=== PATIENT | female | born 1985 | race Caucasian/White ===

== ENCOUNTER 2021-07-01 19:41 | Emergency (ER) | payer BC, SELFPAY ==
[2021-07-01 20:00] VITALS: BP 145/72; PULSE 75; RESP 20; TEMP 36.9; O2SAT 99
--- NOTE | 2021-07-01 20:38 | ED.URI ---
HPI - URI/Sore Throat General Chief Complaint: Upper Respiratory Infection Stated Complaint: Covid Symptoms Time Seen by Provider: 07/01/21 20:26 Source: patient and RN notes reviewed Mode of arrival: ambulatory Limitations: no limitations History of Present Illness HPI Narrative: Patient presents today complaining of a 2-day history of cough, nasal congestion, sore throat and ear pain. She called her doctor yesterday and was given a Z-Ethan over the phone for her symptoms for presumed sinus infection. Patient had a fever of 102 yesterday. Today she was at a public pool for her son's birthday democrat and could not smell the chlorine or taste the pizza became alarmed. Denies shortness of breath or chest pain. She has had her COVID-19 vaccine. Denies history of asthma or COPD. She has been taking Flonase and NyQuil with some relief. MD elicited complaint: fever, cough and nasal congestion Related Data Home Medications Medication Instructions Recorded Confirmed PNV cmb#95-ferrous fumarate-FA 28 tablet PO DAILY 07/01/21 07/01/21 [] azithromycin 07/01/21 metformin 1,000 mg PO BID 07/01/21 07/01/21 Allergies Allergy/AdvReac Type Severity Reaction Status Date / Time No Known Allergies Allergy Unverified 06/28/18 17:23 Review of Systems Review of Systems: CONSTITUTIONAL: Denies body aches, chills, or sweats.+ Fever EYES: Denies visual changes, redness, or discharge. ENT: Denies rhinorrhea. + Congestion, ear pain, sore throat, loss of taste and smell CARDIOVASCULAR: Denies chest pain, palpitations, or edema. RESPIRATORY: Denies dyspnea.+ Cough GASTROINTESTINAL: Denies abdominal pain, nausea, vomiting, or diarrhea. GENITOURINARY: Denies dysuria or hematuria. SKIN: Denies rash, itching, or wounds. MUSCULOSKELETAL: Denies back pain, joint pain, or myalgia. NEUROLOGIC: Denies headache, numbness, tingling, or weakness. PSYCH: Denies depression or anxiety. [facility] Social History Social History Gender identity (if verbalized by the patient): Female Comments At time of signature, I have reviewed and agree with nursing past medical, surgical, social and family history unless otherwise noted. Please see nursing chart for further information. There is no relevant family history pertinent to the presenting complaint Exam Narrative: GENERAL: Well-appearing, well-nourished, and in no acute distress. HEAD: Normocephalic, atraumatic. EYES: EOMI. No redness or drainage. Conjunctivae normal. ENT: Mucous membranes pink and moist. Nares clear. No rhinorrhea. Left TM normal. Right TM with serous effusion. Throat normal. Uvula midline. NECK: Normal AROM. Supple. No lymphadenopathy. CHEST: No respiratory distress. Clear to auscultation. HEART: Regular rate and rhythm. No murmur appreciated. Normal peripheral pulses. EXTREMITIES: Normal range of motion. No edema. SKIN: Warm, dry, no rash. Capillary refill normal. Normal skin turgor. NEURO: No focal deficits. Alert and oriented x3. Gait steady. PSYCH: Normal affect. No signs of depression or anxiety. Course Vital Signs Vital signs: Vital Signs Temperature 98.5 F 07/01/21 20:00 Pulse Rate 75 07/01/21 20:00 Respiratory Rate 20 07/01/21 20:00 Blood Pressure 145/72 H 07/01/21 20:00 Pulse Oximetry 99 07/01/21 20:00 Temperature 98.5 F 07/01/21 20:00 Pulse Rate 75 07/01/21 20:00 Respiratory Rate 20 07/01/21 20:00 Blood Pressure 145/72 H 07/01/21 20:00 Pulse Oximetry 99 07/01/21 20:00 Reviewed. Pt has been instructed to follow up with her PCP regarding her elevated blood pressure today. MDM - URI/Sore Throat Differential Diagnosis Differential diagnosis: Likely upper respiratory infection, sinusitis, viral infection, bronchitis and other (COVID-19) Lab Data Attestation: I reviewed the patient's lab results. Lab results narrative: Rapid Covid test positive Labs: Lab Resul
== END 2021-07-01 20:48 | disposition home or self-care (01) ==
PROVIDERS: Emergency Provider Nurse Practitioner; PCP Nurse Practitioner Family
DX: U07.1 COVID-19 (principal)
CPT/HCPCS: 87426; 99203; C9803; G0463

== ENCOUNTER 2022-08-15 12:30 | Outpatient (RCR) | payer BC, SELFPAY ==
[2022-08-08 21:42] VITALS: BP 122/66; PULSE 60
[2022-08-15 13:22] VITALS: BP 109/63; PULSE 75
== END 2022-11-06 23:59 | disposition home or self-care (01) ==
LOC: ANHOBOP 12:30
PROVIDERS: Visit Provider Obstetrics & Gynecology
DX: O36.8130 Decreased fetal movements, third trimester, not applicable or unspecified (principal); Z3A.37 37 weeks gestation of pregnancy
CPT/HCPCS: 59025

== ENCOUNTER 2022-08-21 10:49 | Outpatient (CLI) | payer BC, SELFPAY ==
[2022-08-21 11:34] LABS: Hematocrit 35.4 % (37.0-47.0); Hemoglobin 12.2 g/dL (12.0-15.0); Mean Corpuscular HGB Conc 34.5 g/dl (32-36); Mean Corpuscular Hemoglobin 33.3 pg (26-34); Mean Corpuscular Volume 96.7 fl (80-100); Mean Platelet Volume 9.5 fl (7.4-10.4); Platelet Count Result 140 k/mm3 (150-375); Red Blood Count 3.66 M/mm3 (4.2-5.4); Red Cell Distribution Width 12.7 % (11.5-14.5); White Blood Count 6.5 K/mm3 (4.5-10.0)
[2022-08-21 12:44] LABS: HIV 1/2 Ab P24 Ag Result Negative (Negative)
[2022-08-21 15:25] LABS: Rapid Plasma Reagin Non-Reactive (NonReactive)
== END 2022-08-21 10:50 | disposition home or self-care (01) ==
PROVIDERS: Visit Provider Obstetrics & Gynecology
DX: Z34.93 Encounter for supervision of normal pregnancy, unspecified, third trimester (principal); Z3A.00 Weeks of gestation of pregnancy not specified
CPT/HCPCS: 36415; 85027; 86592; 86703; 86850; 86900; 86901; G0432

== ENCOUNTER 2022-08-22 05:04 | Inpatient (IN) | payer BC, SELFPAY ==
[2022-08-22] VITALS (43 sets, daily range): BP systolic 79–136; BP diastolic 43–80; PULSE 44–171; RESP 10–20; TEMP 35.7–36.8; O2SAT 97–100; BMI 37.5
[2022-08-22] MEDS: LACTATED RINGERS 1,000 ML 125 ML IV CONT ×2 (06:41→07:14)
--- NOTE | 2022-08-22 07:12 | P.HP_ITS ---
H&P: HPI History of Present Illness Date/Time: 08/22/22 07:12 Chief Complaint: R CS Narrative: Esther is a 37yo at 39.0 for repeat CS. her is complicated by AMA, BMI 43, history of gastric sleeve, IUGR 9% at one point (currently 15%), and COVID during . She had PreE last and has had a couple mildly elevated BPs and a normal 24hour urine at 37w. Review of Systems Review of Systems: All systems reviewed & are unremarkable except as noted in HPI and below PMFSH Family History Family History (Updated 08/03/22 @ 12:46 by Zulema Pérez RN) Mother Diabetes mellitus Social History Social History Smoking status: Never smoker Second hand tobacco smoke exposure: No Substance use: never Gender identity (if verbalized by the patient): Female Spiritual care concerns: No Meds Home Medications and Allergies Home Medications Medication Instructions Recorded Confirmed Type vit no.95-ferrous 28 tablet PO DAILY 07/01/21 08/22/22 History fumarate 28 mg-folic acid 800 mcg tablet () aspirin 81 mg tablet 81 mg PO DAILY 08/03/22 08/03/22 History vitamin B complex (B 1 tablet PO DAILY 08/03/22 08/03/22 History Complex-Vitamin B12 tablet) Allergies Allergy/AdvReac Type Severity Reaction Status Date / Time No Known Allergies Allergy Unverified 06/28/18 17:23 Vital Signs Vital Signs - 24 hr 08/22/22 05:18 08/22/22 06:45 Pulse Rate 71 Blood Pressure 115/70 Oxygen Delivery Room Air Exam Const: General: no acute distress Resp: Effort & Inspection: normal respiratory effort Auscultation: clear to auscultation bilaterally Cardio: Rate: regular rate Rhythm: regular rhythm GI: GI Palp: Yes Soft to palpation Extrem: General: normal to inspection Assessment and Plan Assessment and plan (1) History of delivery: Code(s): Z98.891 - History of uterine scar from previous surgery Status: Acute (2) AMA (advanced maternal age) multigravida 35+: Code(s): O09.529 - Supervision of elderly multigravida, unspecified trimester Status: Acute (3) H/O gastric sleeve: Code(s): Z90.3 - Acquired absence of stomach [part of] Status: Acute (4) BMI 40.0-44.9, adult: Code(s): Z68.41 - Body mass index [BMI] 40.0-44.9, adult Status: Acute Plan consented for R CS discussed RBA, questions answered. will proceed.
--- NOTE | 2022-08-22 07:16 | WPDHPUPDATE1 ---
History and Physical Update Update Date/Time: 08/22/22 07:16 History and Physical has been reviewed, including an updated exam of the patient. There are NO changes in the patient's condition. Risks, benefits, and alternatives have been discussed and questions answered. Patient agrees to proceed with procedure.
[2022-08-22] MEDS: ceFAZolin 2 GM/D5W 50 ML 2 GM/50 ML BAG IVPB (08:00)
--- NOTE | 2022-08-22 08:58 | PM.OBPRVD ---
OB - Delivery Note Procedure Delivery date: 08/22/22 Procedure: Procedures Operation Date: 08/22/22 07:30 <No data on this case meets the specified criteria> repeat low transverse section Events: Previous Delivery Route of delivery: Specimen: Yes (placenta) Quantitative Blood Loss (ml): 535 Anesthesia type: Spinal Disposition: Floor Complications: none Narrative: The patient was taken to the OR and received spinal anesthesia. She was placed in dorsal supine position with left lateral tilt. SCDs and brito were placed. She was prepped and draped in the normal sterile fashion. A Pfannensteil skin incision was made and carried through to the underlying layer of fascia. The fascia was incised in the midline and then extended laterally using Anderson scissors. The muscles were in the midline and the peritoneum was entered bluntly. The peritoneal incision was extended inferiorly and superiorly with care to avoid the bladder. The bladder blade was then inserted, the vesicouterine peritoneum was grasped, incised with Metzenbaum scissors, and a bladder flap created. The bladder blade was reinserted. A low transverse uterine incision was made with a scalpel and extended bluntly. AROM was performed and fluid was noted to be clear. The head was delivered, followed by the remainder of the baby. The baby's oropharynx was suctioned. After 30 seconds, the cord was clamped and cut and the was handed off. Cord blood was obtained and the placenta was then removed manually. The uterus was exteriorized. A moist lap sponge was used to curette the endometrium. The uterine incision was then closed with one layer of 0-Vicryl in a running, locking fashion. Good hemostasis was noted. The posterior cul de sac was irrigated with normal saline and cleared of all clot and debris. The uterus was returned to the abdomen. Both lateral gutters were then irrigated. The rectus muscles were inspected and found to be hemostatic. The fascia was reapproximated using 0-Vicryl in running fashion. The subcutaneous tissue was irrigated with normal saline and made hemostatic with Bovie electrocautery. The subcutaneous tissue was reapproximated with a layer of running 2-0 plain gut. The skin was then closed with absorbable danielle. Steri strips and a bandage were applied. The uterus was evacuated. The patient tolerated the procedure very well. All counts were correct. She was taken to the recovery room in good condition. [place] Baby Date of : 08/22/22 Time of : 08:09 Weeks of gestation at delivery: 39 gender: Female Weight (pounds): 6 Weight (ounces): 8 presentation: vertex Placenta delivery description: Manual Removal Cord Vessel Description: 3 Vessels and Delayed Cord Clamping score one minute: 9 score five minutes: 9
[2022-08-22] MEDS: DEXTROSE 5%/0.45% SOD CHL 1,000 ML 125 ML IV CONT (12:23)
--- NOTE | 2022-08-22 13:46 | OBPPTRN ---
1120 Patient transferred to post room #285 via stretcher. Support person present. Oriented to unit, room, information board, rooming in, admission packet and security measures. Patient verbalizes understanding.
[2022-08-22] MEDS: HYDROcodone/acetaminophen (*CRX) 5-325 MG TABLET 1 TAB PO (22:02)
[2022-08-23] MEDS: HYDROcodone/acetaminophen (*CRX) 10-325 MG TABLET 1 TAB PO ×4 (04:07→21:55)
[2022-08-23 04:15] VITALS: BP 122/78; PULSE 66; RESP 18; TEMP 36.6
[2022-08-23] MEDS: SIMETHICONE 80 MG TAB.CHEW PO ×4 (04:37→17:08)
[2022-08-23 05:18] LABS: Basophils Percent Auto 0.1 % (0.2-1.2); Eosinophils Absolute Auto 0.1 K/mm3 (0-0.3); Eosinophils Percent Auto 0.9 % (0-4.4); Hematocrit 31.2 % (37.0-47.0); Hemoglobin 10.5 g/dL (12.0-15.0); Immature Granulocyte Absolute 0.05 K/mm3 (0.00-0.031); Immature Granulocyte Percent A 0.6 % (0-0.5); Immature Platelet Fraction Pct 2.5 % (0.9-11.2); Lymphocytes Absolute Auto 1.39 K/mm3 (0.9-3.2); Lymphocytes Percent Auto 17.6 % (18.3-44.2); Mean Corpuscular HGB Conc 33.7 g/dl (32-36); Mean Corpuscular Hemoglobin 33.2 pg (26-34); Mean Corpuscular Volume 98.7 fl (80-100); Mean Platelet Volume 9.6 fl (7.4-10.4); Monocytes Absolute Auto 0.4 K/mm3 (0.1-0.6); Monocytes Percent Auto 5.5 % (2.6-8.5); Neutrophils Absolute Auto 5.9 K/mm3 (1.3-6.7); Neutrophils Percent Auto 75.3 % (45.5-73.1); Platelet Count Result 105 k/mm3 (150-375); Red Blood Count 3.16 M/mm3 (4.2-5.4); Red Cell Distribution Width 12.8 % (11.5-14.5); White Blood Count 7.9 K/mm3 (4.5-10.0)
--- NOTE | 2022-08-23 07:30 | PC.NURSE ---
PT introductions made and plan of care discussed per post , breast pumping and bottle feeding, daily care activities and pain management. PT and spouse both recipients of such instructions and no barriers to learning identified at this time. PT received such instructions this shift per one to one discussion, mom baby care guide and demonstrations. PT verbalized understanding of such care.
--- NOTE | 2022-08-23 07:36 | WPDANLDPN2 ---
Anes-Prog Note L&D Date/Time: 08/23/22 07:36 Comfortable throughout: section Neuraxial method: spinal Epidural/Spinal procedure site: clean & non-tender Neuro status: Neuro function grossly intact. Cardiovascular status: normal Respiratory status: normal Airway patency: baseline Mental status: baseline Post-Op hydration status: normal Vital Signs: Last Vital Signs Temp 98 F 08/23/22 04:15 Pulse 66 08/23/22 04:15 Resp 18 08/23/22 04:15 BP 122/78 08/23/22 04:15 Pulse Ox 100 08/22/22 23:10 O2 Del Method Room Air 08/23/22 04:15 Pain score (VAS): 0/10 I/O: Intake & Output 08/22/22 08/22/22 08/23/22 15:59 23:59 07:59 Intake Total 240 2500 1000 Output Total 370 2150 1400 Balance -130 350 -400 Post-procedural complaints: none Patient feedback: Patient satisfied with anesthetic care.
--- NOTE | 2022-08-23 07:37 | WPDANLDNPN2 ---
Anes-Prog Note L&D-Neuraxial Date/Time: 08/23/22 07:37 Neuraxial medications: intrathecal PF morphine Opiod-related complaints: none Patient feedback: Patient satisfied with post-operative pain management.
[2022-08-23 08:05] VITALS: BP 122/85; PULSE 67; RESP 18; TEMP 36.6; O2SAT 99
--- NOTE | 2022-08-23 08:19 | P.PNOB_ITS ---
OB - PN: Subj Subjective Date/time seen: 08/23/22 08:20 Patient comments: no complaints, pain well controlled, tolerating diet and flatus present OB - PN: Obj Data Labs CBC & Chem 7: 08/23/22 04:15 Labs: Laboratory Results - last 24 hr 08/23/22 04:15 WBC 7.9 RBC 3.16 L Hgb 10.5 L Hct 31.2 L MCV 98.7 MCH 33.2 MCHC 33.7 RDW 12.8 Plt Count 105 L MPV 9.6 Immature Gran % (Auto) 0.6 H Neut % (Auto) 75.3 H Lymph % (Auto) 17.6 L Preston % (Auto) 5.5 Eos % (Auto) 0.9 Baso % (Auto) 0.1 L Lymph # (Auto) 1.39 Preston # (Auto) 0.4 Eos # (Auto) 0.1 Baso # (Auto) 0.0 Abs Immat Gran (auto) 0.05 H Absolute Neuts (auto) 5.9 Absolute Nucleated RBC 0.0 Nucleated RBC % 0.0 % Immature Plt Fraction 2.5 OB - PN A/P Plan day: 1 Comments: Post Op LTCS - no problems, routine recovery Time Spent With Patient Time: Total time spent is greater than 50% in coordination of care (as documented) at patient's floor/unit and/or counseling patient: Exam Const: General: cooperative, healthy appearing, comfortable and no acute distress Resp: Auscultation: no crackles, no rales, no rhonchi and no wheezes Cardio: Rhythm: regular rhythm Heart sounds: no click and no murmurs GI: Inspection: non-distended Auscultation: normal bowel sounds Extrem: General: normal to inspection, no pedal edema and no calf tenderness
[2022-08-23] MEDS: TETANUS,DIPHTHERIA,AC PERTUSSIS ADULT (0.5 ML) BOOSTRIX IM (09:05)
[2022-08-23 09:06] VITALS: PULSE 67; RESP 18; O2SAT 99
[2022-08-23] MEDS: DOCUSATE SODIUM 100 MG CAPSULE PO ×2 (09:06→17:07)
[2022-08-23] MEDS: MULTIVIT/MIN/PREN/FOL AC/IRON TABLET 1 TAB PO (09:06)
[2022-08-23] MEDS: LANOLIN (LANSINOH) 7.5 GM CREAM 1 APPLIC TOPICAL (09:07)
[2022-08-23] MEDS: HYDROcodone/acetaminophen (*CRX) 5-325 MG TABLET 1 TAB PO (12:29)
--- NOTE | 2022-08-23 13:34 | PC.NURSE ---
[id number] Introductions were made, then consulted with patient to assess needs related to . Mother led the conversation with her?plans to feed?her infant and the?experience so far. Resources provided for inpatient and outpatient services using a resource guide and mom/baby guide. Mother voiced understanding of information and ask questions regarding pumping. Mother plans to pump and feed with no latching to the breast. A pump was provided prior to meeting RN. Reviewed care, usage, milk production, risk and benefits of pumping. Parents voiced understanding of the information.
[2022-08-23 19:00] VITALS: BP 95/62; PULSE 70; RESP 16; TEMP 36.4
[2022-08-23] MEDS: BISACODYL 10 MG SUPPOSITORY RECTAL (22:22)
[2022-08-24] MEDS: HYDROcodone/acetaminophen (*CRX) 10-325 MG TABLET 1 TAB PO ×2 (01:42→06:49)
[2022-08-24] MEDS: SIMETHICONE 80 MG TAB.CHEW PO ×2 (01:42→06:49)
[2022-08-24] MEDS: MULTIVIT/MIN/PREN/FOL AC/IRON TABLET 1 TAB PO (06:49)
[2022-08-24] MEDS: DOCUSATE SODIUM 100 MG CAPSULE PO (06:49)
--- NOTE | 2022-08-24 07:31 | PM.OBPNVD ---
OB - PN: Subj Subjective Date/time seen: 08/24/22 07:31 Patient comments: pain well controlled and tolerating diet [place] baby status: doing well [place] feeding status: pumping and bottle feeding Narrative: would like DC home today OB - PN: Obj Data Labs CBC & Chem 7: 08/23/22 04:15 OB - PN A/P Assessment and Plan (1) delivery delivered: Code(s): O82 - Encounter for delivery without indication Status: Acute (2) H/O gastric sleeve: Code(s): Z90.3 - Acquired absence of stomach [part of] Status: Acute (3) AMA (advanced maternal age) multigravida 35+: Code(s): O09.529 - Supervision of elderly multigravida, unspecified trimester Status: Acute Plan day: 2 Plan: routine care and discharge home Time Spent With Patient Time: Total time spent is greater than 50% in coordination of care (as documented) at patient's floor/unit and/or counseling patient: Exam Narrative: NAD abdomen soft, appropriately tender, incision CDI Extremities nontender with 1+ edema
--- NOTE | 2022-08-24 07:37 | P.DS_ITS ---
DS: Admitting Diagnosis Discharge Date 08/24/22 Admitting Diagnosis IUP 39w, prior CS DS: Discharge Diagnosis Discharge Diagnosis (1) delivery delivered: Code(s): O82 - Encounter for delivery without indication Status: Acute (2) BMI 40.0-44.9, adult: Code(s): Z68.41 - Body mass index [BMI] 40.0-44.9, adult Status: Acute (3) H/O gastric sleeve: Code(s): Z90.3 - Acquired absence of stomach [part of] Status: Acute (4) AMA (advanced maternal age) multigravida 35+: Code(s): O09.529 - Supervision of elderly multigravida, unspecified trimester Status: Acute OB - DS: Summary Hospital Course Hospital Course: Esther was admitted for a repeat CS at 39w. She had an uncomplicated delivery and course. She was discharged home on POD 2. OB Procedures : NST and Ultrasound OB Procedures Intrapartum: OB Procedures: : None Peripartum Data Delivery Method: Section Procedures: Procedures Operation Date: 08/22/22 07:30 Actual Procedure Side Surgeon p Section Not Applicable Luann Nelson MD complications: none Status at Discharge Functional status at discharge: independent ambulation Time Spent with Patient Time attestation: Total time spent providing and/or coordinating discharge services: Exam Narrative: NAD abdomen soft, appropriately tender, incision CDI Discharge Plan Discharge Attending physician on discharge: Luann Nelson Discharging Clinician: Luann Nelson Anticipated Discharge Date/Time: 08/24/22 07:35 Patient Disposition: Home, Self-Care Activity: may drive after 2 weeks and pelvic rest Diet: regular and post-gastrectomy Patient Instructions: Antibiotic Form Stand Alone Forms: General Discharge Information Follow-up/Referrals: Luann Nelson MD [Physician] - 1 Week Discharge Medications: New hydrocodone-acetaminophen 5-325 mg Tablet 1 tablet PO Q4-5H PRN (Reason: Moderate Pain (4-6)) Qty: 30 0RF docusate sodium 100 mg Capsule 100 mg PO BID PRN (Reason: constipation) Qty: 60 0RF Continued PNV cmb#95-ferrous fumarate-FA [] 28 mg iron- 800 mcg tablet 28 tablet PO DAILY vitamin B complex [B Complex-Vitamin B12] Tablet 1 tablet PO DAILY Discontinued Adult Low Dose Aspirin 81 mg Tablet 81 mg PO DAILY Date of admission: 08/22/22 05:04 Primary Care Provider: PHYSICIAN,TEXTURE ARTIST Admitting Provider: Luann Nelson Attending physician on admission: Luann Nelson Condition: Stable
[2022-08-24 08:30] VITALS: BP 131/80; PULSE 73; RESP 18; TEMP 36.7; O2SAT 98
[2022-08-27 10:44] VITALS: BP 126/75; PULSE 63; RESP 20; TEMP 37.1; O2SAT 100
== END 2022-08-24 10:02 | disposition home or self-care (01) | DRG 788 ==
LOC: ANHLDR 05:07 → ANHOB2 11:32
PROVIDERS: Admitting Provider Obstetrics & Gynecology; Visit Provider Obstetrics & Gynecology
PROC: 10D00Z1 Extraction of Products of Conception, Low, Open Approach (ICD-10-PCS; CPT 59514; principal; 2022-08-22 07:30)
DX: O34.219 Maternal care for unspecified type scar from previous cesarean delivery (principal); Z98.84 Bariatric surgery status; Z86.16 Personal history of COVID-19; Z79.82 Long term (current) use of aspirin; Z3A.39 39 weeks gestation of pregnancy; Z37.0 Single live birth; Z23 Encounter for immunization
CPT/HCPCS: 36415; 85025; 85055; 90471; 90686; 90715; A9270; G0008; J0690; J1885; J2274; J2370; J2405; J2590; J7120

== ENCOUNTER 2024-07-24 09:51 | Observation (INO) | payer BC, SELFPAY ==
[2024-07-24] VITALS (7 sets, daily range): BP systolic 108–123; BP diastolic 61–71; PULSE 66–77; BMI 39.5
--- NOTE | 2024-07-24 10:35 | OBADM ---
This patient, Esther Mcrae, admitted to the OB room OB Post 116 for observation. Patient/family oriented to hospital policies and general routines including ID bracelet, bed and alarms, visiting hours, pain management, procedures, bathroom and other care routines, personal items, smoking policy, room service/diet, and visiting hours. Patient/Family are encouraged to report perceived risks to care and to ask questions if they do not understand what they are told or what they should do.
[2024-07-24 11:25] LABS: Add Urine Microscopic? YES; Appearance Urine Cloudy (Clear); Bacteria Urine 1+ /hpf; Bilirubin Urine Negative (Negative); Blood Urine Negative (Negative); Color Urine Yellow (Yellow); Glucose Urine UA Negative (Negative); Ketones Urine Negative (Negative); Leukocyte Esterase Ur Negative LEU/UL (Negative); Nitrate Urine Negative (Negative); Non Pathogenic Casts 0-2; Protein Urine Negative (Negative); RBC Urine 0-2 /hpf (0-2); Specific Grav Ur 1.013 (1.001-1.035); Squamous Epithelial Cell Urine Many /hpf (Few); WBC Urine 0-5 /hpf (0-3); pH Urine 6.5 (5.0-9.0)
--- NOTE | 2024-07-24 11:37 | PC.NURSE ---
1136 called and gave report on Pt to Dr mishra pressure consistent with occasional contraction. 02/25 pain ok to return home. explained follow s/s to return
--- NOTE | 2024-07-27 08:40 | P.PNOB_ITS ---
OB - Triage/Final Diagnosis Visit Information Comments/Additional reasons for admission: I have assessed the risk for this patient, Esther Mcrae, and determined that she would benefit from observation care. Evaluation Laboratory results: Laboratory Tests 07/24/24 10:15 Urine Color Yellow Urine Appearance Cloudy H Urine pH 6.5 Ur Specific [place] 1.013 Urine Protein Negative Urine Glucose (UA) Negative Urine Ketones Negative Ur Blood (Man) Negative Urine Nitrate Negative Urine Bilirubin Negative Urine Urobilinogen 1.0 Ur Leukocyte Esterase Negative Urine RBC 0-2 Urine WBC 0-5 Ur Squamous Epith Cells Many H Urine Bacteria 1+ H Urine Casts 0-2 Final Diagnosis (1) Back pain affecting : Code(s): O99.891 - Other specified diseases and conditions complicating ; M54.9 - Dorsalgia, unspecified Status: Acute
== END 2024-07-24 11:49 | disposition home or self-care (01) ==
PROVIDERS: Admitting Provider Obstetrics & Gynecology; Visit Provider Obstetrics & Gynecology
DX: O99.891 Other specified diseases and conditions complicating pregnancy (principal); M54.9 Dorsalgia, unspecified; Z3A.36 36 weeks gestation of pregnancy
CPT/HCPCS: 81001; 87077; 87086; 87088; G0378; G0379

== ENCOUNTER 2024-07-29 09:41 | Outpatient (CLI) | payer BC, SELFPAY ==
[2024-07-29 10:31] VITALS: BP 120/67; PULSE 82
[2024-07-29 10:32] LABS: Basophils Percent Auto 0.1 % (0.2-1.2); Eosinophils Percent Auto 0.5 % (0-4.4); Hematocrit 33.7 % (37.0-47.0); Hemoglobin 11.2 g/dL (12.0-15.0); Immature Granulocyte Absolute 0.04 K/mm3 (0.00-0.031); Immature Granulocyte Percent A 0.5 % (0-0.5); Lymphocytes Absolute Auto 1.24 K/mm3 (0.9-3.2); Lymphocytes Percent Auto 16.4 % (18.3-44.2); Mean Corpuscular HGB Conc 33.2 g/dl (32-36); Mean Corpuscular Hemoglobin 32.2 pg (26-34); Mean Corpuscular Volume 96.8 fl (80-100); Mean Platelet Volume 9.1 fl (7.4-10.4); Monocytes Absolute Auto 0.7 K/mm3 (0.1-0.6); Monocytes Percent Auto 9.5 % (2.6-8.5); Neutrophils Absolute Auto 5.5 K/mm3 (1.3-6.7); Platelet Count Result 157 k/mm3 (150-375); Red Blood Count 3.48 M/mm3 (4.2-5.4); Red Cell Distribution Width 13.2 % (11.5-14.5); White Blood Count 7.6 K/mm3 (4.5-10.0)
[2024-07-29 10:36] LABS: Add Urine Microscopic? NO; Appearance Urine Clear (Clear); Bilirubin Urine Negative (Negative); Blood Urine Negative (Negative); Color Urine Yellow (Yellow); Glucose Urine UA Negative (Negative); Ketones Urine Negative (Negative); Leukocyte Esterase Ur Negative LEU/UL (Negative); Nitrate Urine Negative (Negative); Protein Urine Negative (Negative); Specific Grav Ur 1.014 (1.001-1.035); pH Urine 6.5 (5.0-9.0)
[2024-07-29 10:45] VITALS: BP 113/75; PULSE 86
[2024-07-29 10:45] LABS: Alanine Aminotransferase 13 U/L (6-35); Albumin Level 3.1 g/dL (3.5-5.1); Alkaline Phosphatase 119 U/L (38-126); Anion Gap 6 mmol/L (4-12); Aspartate Amino Transferase 24 U/L (14-36); Bilirubin,Total 0.3 mg/dL (0.2-1.3); Blood Urea Nitrogen 13 mg/dL (7-17); Calcium 8.5 mg/dL (8.4-10.2); Carbon Dioxide 24 mmol/L (22-30); Chloride 103 mmol/L (98-107); Estimated Glomerular Filt Rate > 60; Glucose 97 mg/dL (65-110); Potassium 4.2 mmol/L (3.4-5.0); Sodium 133 mmol/L (137-145); Uric Acid 3.7 mg/dL (2.5-7.5)
[2024-07-29 10:53] LABS: Creatinine Urine 55.5 mg/dL; Total Protein Urine Random 17 mg/dL; Ur Ttl Prot Creatinine Ratio 0.31 mg/mg (0-0.20)
[2024-07-29] MEDS: ACETAMINOPHEN 500 MG TABLET 1000 MG PO (11:15)
[2024-07-29 12:06] VITALS: BP 120/67; PULSE 80
== END 2024-07-29 11:28 | disposition home or self-care (01) ==
LOC: ANHOBOP 09:50 → ANHOBPP 10:01
PROVIDERS: Visit Provider Obstetrics & Gynecology
DX: O13.9 Gestational [pregnancy-induced] hypertension without significant proteinuria, unspecified trimester (principal); Z3A.00 Weeks of gestation of pregnancy not specified
CPT/HCPCS: 36415; 59025; 80053; 81003; 82570; 84156; 84550; 85025; 99199; A9270

== ENCOUNTER 2024-08-11 10:37 | Outpatient (CLI) | payer BC, SELFPAY ==
[2024-08-11 11:02] LABS: Hematocrit 35.9 % (37.0-47.0); Hemoglobin 12.1 g/dL (12.0-15.0); Mean Corpuscular HGB Conc 33.7 g/dl (32-36); Mean Corpuscular Hemoglobin 32.1 pg (26-34); Mean Corpuscular Volume 95.2 fl (80-100); Mean Platelet Volume 9.3 fl (7.4-10.4); Platelet Count Result 171 k/mm3 (150-375); Red Blood Count 3.77 M/mm3 (4.2-5.4); Red Cell Distribution Width 13.2 % (11.5-14.5); White Blood Count 7.4 K/mm3 (4.5-10.0)
[2024-08-11 11:54] LABS: HIV 1/2 Ab P24 Ag Result Negative (Negative)
[2024-08-12 06:54] LABS: Rapid Plasma Reagin Non-Reactive (NonReactive)
== END 2024-08-11 10:38 | disposition home or self-care (01) ==
LOC: ANHLAB 10:40
PROVIDERS: Visit Provider Obstetrics & Gynecology
DX: Z01.812 Encounter for preprocedural laboratory examination (principal)
CPT/HCPCS: 36415; 85027; 86592; 86703; 86850; 86900; 86901; G0432

== ENCOUNTER 2024-08-12 05:04 | Inpatient (IN) | payer BC, SELFPAY ==
[2024-08-12] VITALS (36 sets, daily range): BP systolic 103–132; BP diastolic 61–92; PULSE 54–81; RESP 14–19; TEMP 36.1–36.7; O2SAT 65–100; BMI 39.9
[2024-08-12] MEDS: ACETAMINOPHEN 500 MG TABLET 1000 MG PO (05:32)
[2024-08-12] MEDS: ceFAZolin 2 GM/D5W 50 ML 2 GM/50 ML BAG IVPB (06:22)
[2024-08-12] MEDS: LACTATED RINGERS 1,000 ML 125 ML IV CONT (06:23)
--- NOTE | 2024-08-12 06:33 | LDADM ---
This patient, Esther Mcrae, was admitted to Labor/Delivery/Recovery 119 on 08/12/24 at 05:04. Plans for pain management and were discussed with patient. Patient/family oriented to hospital policies and general routines including ID bracelet, bed and alarms, visiting hours, pain management, procedures, bathroom and other care routines, personal items, smoking policy, room service/diet and guest tray routines, infant security routines, and visiting hours. Patient/Family are encouraged to report perceived risks to care and to ask questions if they do not understand what they are told or what they should do. See OBIX for further documentation.
[2024-08-12] MEDS: ONDANSETRON INJ 4 MG/2 ML VIAL IV PUSH ×2 (07:15→11:32)
[2024-08-12] MEDS: FAMOTIDINE 20 MG/2 ML VIAL IV PUSH (07:15)
--- NOTE | 2024-08-12 07:19 | WPDANESEPPF ---
Anes - Initial Pre Proc Eval Procedure: Operation Date: 08/12/24 07:30 Proposed Procedures p Section - Baldo Powell MD Date/Time: 08/12/24 07:19 Surgeon: Baldo Powell MD Pre Op Diagnosis: C/S Patient Data Age: 39 Gender: F Height: 1.55 m Weight: 96 kg Last Vital Signs Temp 97.7 F 08/12/24 06:00 Pulse 81 08/12/24 07:16 BP 126/92 H 08/12/24 07:16 O2 Del Method Room Air 08/12/24 06:32 Allergies Allergy/AdvReac Type Severity Reaction Status Date / Time No Known Allergies Allergy Verified 07/24/24 11:08 Home Medications Medication Instructions Recorded Confirmed Type vit no.95-ferrous 1 tablet PO DAILY 07/01/21 07/24/24 History fumarate 28 mg-folic acid 800 mcg tablet () aspirin 81 mg tablet 81 mg PO DAILY 07/22/24 07/24/24 History cholecalciferol (vitamin D3) 125 125 mcg PO DAILY 07/22/24 07/24/24 History mcg (5,000 unit) tablet (Vitamin D3) vitamin A 3,000 mcg (10,000 unit) 3,000 mcg PO DAILY 07/22/24 07/24/24 History capsule Patient hx anesthesia problems: other (Pt reports that she had a headache after her first spinal anesthetic at [place] w her first preg. Treated only w caffeine and no blood patch. ) Family hx anesthesia problems: none Results Review: All pre-operative results and documents have been reviewed as part of the pre-operative evaluation. [facility] Family History Family History Mother Diabetes mellitus Social History Social History Smoking status: Never smoker Second hand tobacco smoke exposure: No Substance use: never Do You Feel Safe in your Home?: Yes Lack of Transportation: No Lack of Food: Never True Current Housing: I Have Housing Concerned About Future Housing: No Difficulty Paying Gas/Electric Bills: No Difficulty Paying for Meds: No Currently Unemployed: No Education: High School Diploma/GED Difficulty w/ Childcare or Family Care: No Gender identity (if verbalized by the patient): Female Spiritual care concerns: No Anes - Eval Final PreProcedure Day of Procedure 08/12/24 07:19 Patient weight: morbidly obese Heart: regular rate and rhythm Lungs: clear to auscultation Airway: Mallampati scale class II Neurological: alert and oriented Last oral intake: >/= 8 hours ASA classification: III Emergent: no Anesthetic plan: proceed Anesthesia type and monitoring: regional spinal and standard monitoring Results Review: All pre-operative results and documents have been reviewed as part of the pre-operative evaluation. BMI 40. Informed Consent: The patient's anesthetic plan and its attendant risks and benefits were discussed with the patient/family/POA. Questions were solicited and answers provided to the satisfaction of the patient/family/POA.
--- NOTE | 2024-08-12 07:19 | PM.IMHP ---
H&P: HPI History of Present Illness Date/Time: 08/12/24 07:19 Chief Complaint: repeat c section Narrative: Patient is a 39 year old at 39 weeks who presents for repeat c section. She has a history of two prior c sections. Her is also complicated by hx of bariatric surgery and AMA. She reports good movement. Denies contractions, LOF, or vaginal bleeding. Review of Systems Review of Systems: All systems reviewed & are unremarkable except as noted in HPI and below PMFSH Family History Family History Mother Diabetes mellitus Social History Social History Smoking status: Never smoker Second hand tobacco smoke exposure: No Substance use: never Do You Feel Safe in your Home?: Yes Lack of Transportation: No Lack of Food: Never True Current Housing: I Have Housing Concerned About Future Housing: No Difficulty Paying Gas/Electric Bills: No Difficulty Paying for Meds: No Currently Unemployed: No Education: High School Diploma/GED Difficulty w/ Childcare or Family Care: No Gender identity (if verbalized by the patient): Female Spiritual care concerns: No Meds Home Medications and Allergies Home Medications Medication Instructions Recorded Confirmed Type vit no.95-ferrous 1 tablet PO DAILY 07/01/21 07/24/24 History fumarate 28 mg-folic acid 800 mcg tablet () aspirin 81 mg tablet 81 mg PO DAILY 07/22/24 07/24/24 History cholecalciferol (vitamin D3) 125 125 mcg PO DAILY 07/22/24 07/24/24 History mcg (5,000 unit) tablet (Vitamin D3) vitamin A 3,000 mcg (10,000 unit) 3,000 mcg PO DAILY 07/22/24 07/24/24 History capsule Allergies Allergy/AdvReac Type Severity Reaction Status Date / Time No Known Allergies Allergy Verified 07/24/24 11:08 Vital Signs Vital Signs - 24 hr 08/12/24 06:31 08/12/24 06:46 08/12/24 06:00 Temperature 97.7 F Pulse Rate 69 75 Blood Pressure 119/77 117/65 Oxygen Delivery 08/12/24 07:01 08/12/24 07:16 08/12/24 06:32 Temperature Pulse Rate 72 81 Blood Pressure 129/71 126/92 H Oxygen Delivery Room Air Exam Const: General: comfortable and no acute distress HENMT: Mouth: Yes moist mucous membranes Eyes: General: appearance normal, both eyes and all related structures Resp: Effort & Inspection: normal respiratory effort Cardio: Rate: regular rate GI: GI Palp: Yes Soft to palpation and No Tenderness to palpation present (GI) Skin: General skin exam: normal color Extrem: General: normal to inspection Psych: Mental Status: mental status grossly normal Assessment and Plan Assessment and plan (1) History of delivery: Code(s): Z98.891 - History of uterine scar from previous surgery Status: Acute Assessment and Plan: - risks and benefits of repeat c section discussed with patient who would like to proceed with repeat c section - ancef 2g preop (2) AMA (advanced maternal age) multigravida 35+: Code(s): O09.529 - Supervision of elderly multigravida, unspecified trimester Status: Acute (3) H/O gastric sleeve: Code(s): Z90.3 - Acquired absence of stomach [part of] Status: Acute
--- NOTE | 2024-08-12 07:23 | WPDHPUPDATE1 ---
History and Physical Update Update Date/Time: 08/12/24 07:23 History and Physical has been reviewed, including an updated exam of the patient. There are NO changes in the patient's condition. Risks, benefits, and alternatives have been discussed and questions answered. Patient agrees to proceed with procedure.
[2024-08-12] MEDS: OXYTOCIN 30 UNITS/NS 500 ML 30 UNITS/500 ML BAG 125 UNITS IV CONT (10:15)
--- NOTE | 2024-08-12 11:29 | PC.NURSE ---
1115 transferred pt to PP w/spouse and friend. transferred to bed from stretcher. cleaned pads applied. cath emptied no other issues report given to PP nurse
[2024-08-12] MEDS: ACETAMINOPHEN 325 MG TABLET 650 MG PO ×2 (13:24→19:15)
[2024-08-12] MEDS: SIMETHICONE 80 MG TAB.CHEW PO ×2 (13:24→19:15)
[2024-08-12] MEDS: LIDOCAINE 5% PATCH 1 PATCH TRANSDERM (13:24)
--- NOTE | 2024-08-12 13:38 | P.PCNOB_ITS ---
OB - Delivery Note Procedure Delivery date: 08/12/24 Pre-op diagnosis: Previous Delivery Post-op Diagnosis: Same Delivery monitor: External FHT Prior to decision for section, ACOG/SMFM labor guidelines were consider ed and discussed with the patient and staff. Decision made to proceed with the section.: Yes Procedure Performed: Repeat Secondary branch: low cervical, transverse Surgeon: Baldo Powell MD Anesthesia type: Epidural Description of Procedure/Findings: The patient was taken to the operating room where she was placed in the dorsal supine position with a leftward tilt. The electronic monitor was placed and heart rate was found to be reassuring. She was prepped and draped in the normal sterile fashion, and anesthesia was checked to be adequate. A Pfannenstiel skin incision was made with the scalpel and carried through to the underlying layer of fascia with the scalpel. The fascia was incised in the midline and the incision extended laterally with the Anderson scissors. The superior aspect of the fascial incision was then grasped with Perez clamps, elevated, and the underlying rectus muscles dissected off bluntly and with Anderson scissors. Attention was then turned to the inferior aspect of the fascial incision, which in similar fashion was grasped, elevated, and the rectus muscles dissected off.? The rectus muscles were then in the midline, and the peritoneum entered bluntly. The peritoneal incision was extended superiorly and inferiorly with good visualization of the bladder. With the bladder blade providing retraction and visualization, the lower uterine segment was incised in a transverse fashion with the scalpel. The uterine incision was then extended laterally. The bladder blade was removed and the 's head was elevated and delivered atraumatically. The remainder of the in blessing was then delivered without difficulty, and the 's nose and mouth were suctioned with the bulb suction. The umbilical cord was doubly clamped and cut. The was then handed off to the waiting nursing staff. Specimens then obtained as listed below. The placenta was then removed manually and the uterus was cleared of all clots and debris. The uterine incision was repaired with 0-Monocryl in a running, interlocked fashion. The posterior cul-de-sac was manually cleared of all clots and debris. The uterus was returned to the abdomen. The gutters were then manually cleared of all clots and debris.? The uterine incision was visualized to be hemostatic. The fascia was reapproximated with 0-Vicryl in a running fashion. The subcutaneous tissues were irrigated with warmed normal saline, and hemostasis was assured.The skin was closed with 4-0 monocryl in a running subcuticular stitch. Fundal pressure was applied to express remaining intrauterine clots and debris. The patient tolerated the procedure well. Sponge, lap, and needle counts were correct times three per nursing. The patient was taken to the recovery room in stable condition. Pathology: None sent Complications: No immediate complications Condition: Stable Disposition: Floor Baby Date of : 08/12/24 Gestational Age by Date: 39 Infant gender: Male presentation: vertex Placenta delivery description: Expressed Cord Vessel Description: 3 Vessels and Delayed Cord Clamping
--- NOTE | 2024-08-12 15:00 | PC.NURSE ---
PT introductions made and plan of care discussed per post op c section, pain management, bottle feeding, daily care activities. PT sole recipient of such care and no barriers to learning identified at this time. PT received such instructions per one to one discussion , mom baby care guide and demonstrations. PT verbalized understanding of such care.
[2024-08-12] MEDS: KCL 20 MEQ/D5/0.45% SOD CHL 1,000 ML 125 ML IV CONT (15:07)
[2024-08-12] MEDS: HYDROcodone/acetaminophen (*CRX) 5-325 MG TABLET 1 TAB PO ×3 (15:24→23:10)
[2024-08-12] MEDS: diphenhydrAMINE HCl INJ 50 MG/ML VIAL 25 MG IV PUSH (15:27)
[2024-08-13] MEDS: ACETAMINOPHEN 325 MG TABLET 650 MG PO ×4 (01:25→19:38)
[2024-08-13] MEDS: HYDROcodone/acetaminophen (*CRX) 5-325 MG TABLET 1 TAB PO ×3 (02:20→09:35)
[2024-08-13 05:00] VITALS: BP 116/80; PULSE 71; RESP 18; TEMP 36.6; O2SAT 100
[2024-08-13 05:58] LABS: Basophils Percent Auto 0.2 % (0.2-1.2); Eosinophils Absolute Auto 0.1 K/mm3 (0-0.3); Eosinophils Percent Auto 0.7 % (0-4.4); Hematocrit 28.9 % (37.0-47.0); Hemoglobin 9.8 g/dL (12.0-15.0); Immature Granulocyte Absolute 0.04 K/mm3 (0.00-0.031); Immature Granulocyte Percent A 0.4 % (0-0.5); Lymphocytes Absolute Auto 1.25 K/mm3 (0.9-3.2); Lymphocytes Percent Auto 12.8 % (18.3-44.2); Mean Corpuscular HGB Conc 33.9 g/dl (32-36); Mean Corpuscular Volume 97.3 fl (80-100); Mean Platelet Volume 9.9 fl (7.4-10.4); Monocytes Absolute Auto 0.7 K/mm3 (0.1-0.6); Monocytes Percent Auto 7.3 % (2.6-8.5); Neutrophils Absolute Auto 7.7 K/mm3 (1.3-6.7); Neutrophils Percent Auto 78.6 % (45.5-73.1); Platelet Count Result 132 k/mm3 (150-375); Red Blood Count 2.97 M/mm3 (4.2-5.4); Red Cell Distribution Width 13.3 % (11.5-14.5); White Blood Count 9.8 K/mm3 (4.5-10.0)
--- NOTE | 2024-08-13 07:24 | PM.OBPNVD ---
OB - PN: Subj Subjective Date/time seen: 08/13/24 07:25 Patient comments: no complaints, pain well controlled, tolerating diet and flatus present OB - PN: Obj Data Labs 08/13/24 04:30 Labs: Laboratory Results - last 24 hr 08/13/24 04:30 WBC 9.8 RBC 2.97 L Hgb 9.8 L Hct 28.9 L MCV 97.3 MCH 33.0 MCHC 33.9 RDW 13.3 Plt Count 132 L MPV 9.9 Immature Gran % (Auto) 0.4 Neut % (Auto) 78.6 H Lymph % (Auto) 12.8 L [place] % (Auto) 7.3 Eos % (Auto) 0.7 Baso % (Auto) 0.2 Lymph # (Auto) 1.25 [place] # (Auto) 0.7 H Eos # (Auto) 0.1 Baso # (Auto) 0.0 Abs Immat Gran (auto) 0.04 H Absolute Neuts (auto) 7.7 H Absolute Nucleated RBC 0.000 Nucleated RBC % 0.0 OB - PN A/P Plan day: 1 Comments: Post Op LTCS - no problems, routine recovery Time Spent With Patient Time: Total time spent is greater than 50% in coordination of care (as documented) at patient's floor/unit and/or counseling patient: Exam Const: General: cooperative, healthy appearing, comfortable and no acute distress Resp: Auscultation: no crackles, no rales, no rhonchi and no wheezes Cardio: Rhythm: regular rhythm Heart sounds: no click and no murmurs GI: Inspection: non-distended Auscultation: normal bowel sounds Extrem: General: normal to inspection, no pedal edema and no calf tenderness
[2024-08-13 07:35] VITALS: BP 123/58; PULSE 66; RESP 18; TEMP 36.6; O2SAT 100
[2024-08-13] MEDS: POLYSACCHARIDE IRON COMPLEX 150 MG CAPSULE PO ×2 (07:43→16:27)
[2024-08-13] MEDS: DOCUSATE SODIUM 100 MG CAPSULE PO ×2 (07:43→16:27)
[2024-08-13] MEDS: SIMETHICONE 80 MG TAB.CHEW PO ×3 (07:43→16:27)
[2024-08-13] MEDS: LIDOCAINE 5% PATCH 1 PATCH TRANSDERM (13:07)
[2024-08-13] MEDS: HYDROcodone/acetaminophen (*CRX) 10-325 MG TABLET 1 TAB PO ×4 (13:08→23:29)
--- NOTE | 2024-08-13 13:57 | WPDANLDPN2 ---
Anes-Prog Note L&D Date/Time: 08/13/24 13:57 Comfortable throughout: section Neuraxial method: spinal Epidural/Spinal procedure site: clean & non-tender Neuro status: Neuro function grossly intact. Cardiovascular status: normal Respiratory status: normal Airway patency: baseline Mental status: baseline Post-Op hydration status: normal Vital Signs: Last Vital Signs Temp 36.6 C 08/13/24 07:35 Pulse 66 08/13/24 07:35 Resp 18 08/13/24 07:35 BP 123/58 L 08/13/24 07:35 Pulse Ox 100 08/13/24 07:35 O2 Del Method Room Air 08/12/24 19:15 Pain score (VAS): 4/10 I/O: Intake & Output 08/12/24 08/13/24 08/13/24 23:59 07:59 15:59 Intake Total 1950 Output Total 2500 Balance -550 Post-procedural complaints: none Patient feedback: Patient satisfied with anesthetic care.
--- NOTE | 2024-08-13 13:58 | WPDANLDNPN2 ---
Anes-Prog Note L&D-Neuraxial Date/Time: 08/13/24 13:58 Neuraxial medications: intrathecal PF morphine Opiod-related complaints: none Patient feedback: Patient satisfied with post-operative pain management.
[2024-08-13 19:30] VITALS: BP 137/76; PULSE 82; RESP 16; TEMP 36.8; O2SAT 100
[2024-08-14] MEDS: SIMETHICONE 80 MG TAB.CHEW PO (07:18)
[2024-08-14] MEDS: ACETAMINOPHEN 325 MG TABLET 650 MG PO (07:18)
[2024-08-14] MEDS: POLYSACCHARIDE IRON COMPLEX 150 MG CAPSULE PO (07:18)
[2024-08-14] MEDS: DOCUSATE SODIUM 100 MG CAPSULE PO (07:18)
[2024-08-14] MEDS: INFLUENZA TRIVALENT VACCINE 45 MCG/0.5 ML SYRINGE IM (07:19)
[2024-08-14 08:15] VITALS: BP 125/71; PULSE 90; RESP 18; TEMP 36.6; O2SAT 98
--- NOTE | 2024-08-14 09:04 | PM.OBPNVD ---
OB - PN: Subj Subjective Date/time seen: 08/14/24 09:04 Interval history: POD#2 s/p RLTCS Doing well, pain controlled Passing flatus Voiding without issue Ready for discharge home today OB - PN: Obj Data Labs 08/13/24 04:30 OB - PN A/P Assessment and Plan (1) delivery delivered: Code(s): O82 - Encounter for delivery without indication Status: Acute (2) AMA (advanced maternal age) multigravida 35+: Code(s): O09.529 - Supervision of elderly multigravida, unspecified trimester Status: Acute (3) H/O gastric sleeve: Code(s): Z90.3 - Acquired absence of stomach [part of] Status: Acute Plan day: 2 Plan: routine care and discharge home Time Spent With Patient Time: Total time spent is greater than 50% in coordination of care (as documented) at patient's floor/unit and/or counseling patient: Review of Systems Review of Systems: All systems reviewed & are unremarkable except as noted in HPI and below Exam Const: General: comfortable and no acute distress Orientation/consciousness: patient oriented x3 Resp: Effort & Inspection: normal respiratory effort GI: GI Palp: Yes Soft to palpation and No Tenderness to palpation present (GI) Other: incision c/d/i
--- NOTE | 2024-08-14 09:11 | PM.OBDSVD ---
DS: Admitting Diagnosis Discharge Date 08/14/24 Admitting Diagnosis repeat c section DS: Discharge Diagnosis Discharge Diagnosis (1) delivery delivered: Code(s): O82 - Encounter for delivery without indication Status: Acute (2) H/O gastric sleeve: Code(s): Z90.3 - Acquired absence of stomach [part of] Status: Acute (3) AMA (advanced maternal age) multigravida 35+: Code(s): O09.529 - Supervision of elderly multigravida, unspecified trimester Status: Acute OB - DS: Summary OB Procedures : None OB Procedures Intrapartum: low cervical, transverse OB Procedures: : None Peripartum Data Procedures: Procedures Operation Date: 08/12/24 07:30 Actual Procedure Side Surgeon p Section Baldo Powell MD Time Spent with Patient Time attestation: Total time spent providing and/or coordinating discharge services: Discharge Plan Discharge Attending physician on discharge: Baldo Powell Discharging Clinician: Baldo Powell Patient Disposition: Home, Self-Care Activity: may shower, as tolerated and pelvic rest Diet: as tolerated Discharge Instructions: Education: Mom and Baby Guide Given to: Mother Follow-Up: Call your delivering provider's office for an appointment to be seen in: call and make an appointment Mom and baby should come to the [facility] for the follow-up appointment. Appointment Date/Time: August 15, 2024 at 2:30 pm What to expect at your follow-up visit: Physical Assessment Call [phone] if you are unable to keep your appointment time. BREAST CARE: * Wear a snug supportive bra. * For engorgement discomfort: Bottle Feeding: * May apply ice packs ABDOMINAL INCISION: (if applicable) * Allow incision to air dry * Do NOT use lotions for powders on your incision * When showering, allow soap and water to run over the incision, but do not wash incision EPISIOTOMY/PERINEAL CARE: * Until bleeding stops, use your vj bottle after urinating * Change your pad frequently throughout the day * You may take sitz baths several times a day (fill your bathtub with warm water and soak for 20 minutes.) Do NOT bathe in the water * No tub baths until seen by your physician - You may shower ACTIVITY: * Rest as much as possible. * Do not exercise or lift anything heavier than your baby (such as laundry or other children.) * Avoid stairs or driving as much as possible. * Do not put anything into the vagina. No douching, tampons, or sexual activity until seen by physician. NOTIFY PHYSICIAN IF YOU HAVE ANY QUESTIONS OR IF ANY OF THE FOLLOWING SYMPTOMS OCCUR: * If your episiotomy or incision becomes red, swollen, or more painful than what you have experienced in the hospital. * If your vaginal bleeding becomes foul smelling. * If your vaginal bleeding becomes more heavy than a period or if your bleeding changes from pink to bright red. However, you may pass an occasional walnut-sized clot once or twice for the first week . * If you experience a sharp, shooting pain in you calves. * If you discover a hard, reddened area on your breast or if you experience flu-like symptoms. DIET: * Eat regular, well-balanced meals. * Drink plenty of fluids daily. If , drink to thirst. Patient Instructions: Antibiotic Form Stand Alone Forms: General Discharge Information Follow-up/Referrals: Baldo Powell MD [Physician] - 1 Week Discharge Medications: New hydrocodone-acetaminophen 5-325 mg Tablet 1 tablet PO Q3H PRN (Reason: Breakthrough Pain Rated 4-6) Qty: 18 0RF docusate sodium 100 mg Capsule 100 mg PO BID Qty: 60 0RF nystatin 100,000 unit/gram powder 1 applic topical BID Qty: 30 1RF Continued PNV cmb#95-ferrous fumarate-FA [] 28 mg iron- 800 mcg tablet 1 tablet PO DAILY vitamin A 3,000 mcg (10,
[2024-08-14] MEDS: HYDROcodone/acetaminophen (*CRX) 10-325 MG TABLET 1 TAB PO (10:16)
[2024-08-15 09:19] VITALS: BP 121/78; PULSE 74; RESP 18; TEMP 36.6; O2SAT 100
== END 2024-08-14 11:00 | disposition home or self-care (01) | DRG 788 ==
LOC: ANHLDR 05:09 → ANHOB2 08-14 08:30 → ANHLDR 08-18 08:00 → ANHOB2 08-18 08:00
PROVIDERS: Admitting Provider Obstetrics & Gynecology; Visit Provider Obstetrics & Gynecology
PROC: 10D00Z1 Extraction of Products of Conception, Low, Open Approach (ICD-10-PCS; CPT 59514; principal; 2024-08-12 07:30)
DX: O34.211 Maternal care for low transverse scar from previous cesarean delivery (principal); Z37.0 Single live birth; Z3A.39 39 weeks gestation of pregnancy; Z23 Encounter for immunization; Z98.84 Bariatric surgery status
CPT/HCPCS: 36415; 85025; 85027; 86592; 86703; 86850; 86900; 86901; 90471; 90656; A9270; G0008; G0432; J0690; J1200; J2274; J2371; J2405; J2590; J3480; J7120

== ENCOUNTER 2024-10-03 12:45 | Outpatient (CLI) | payer BC, SELFPAY ==
[2024-10-03 13:06] LABS: Basophils Percent Auto 0.1 % (0.2-1.2); Eosinophils Absolute Auto 0.1 K/mm3 (0-0.3); Hematocrit 39.2 % (37.0-47.0); Hemoglobin 13.2 g/dL (12.0-15.0); Immature Granulocyte Absolute 0.02 K/mm3 (0.00-0.031); Immature Granulocyte Percent A 0.3 % (0-0.5); Lymphocytes Absolute Auto 2.33 K/mm3 (0.9-3.2); Lymphocytes Percent Auto 29.8 % (18.3-44.2); Mean Corpuscular HGB Conc 33.7 g/dl (32-36); Mean Corpuscular Hemoglobin 31.9 pg (26-34); Mean Corpuscular Volume 94.7 fl (80-100); Mean Platelet Volume 8.3 fl (7.4-10.4); Monocytes Absolute Auto 0.6 K/mm3 (0.1-0.6); Monocytes Percent Auto 7.8 % (2.6-8.5); Neutrophils Absolute Auto 4.8 K/mm3 (1.3-6.7); Platelet Count Result 198 k/mm3 (150-375); Red Blood Count 4.14 M/mm3 (4.2-5.4); Red Cell Distribution Width 11.9 % (11.5-14.5); White Blood Count 7.8 K/mm3 (4.5-10.0)
== END 2024-10-03 12:46 | disposition home or self-care (01) ==
LOC: ANHLAB 12:46
PROVIDERS: Visit Provider Surgery
DX: K42.9 Umbilical hernia without obstruction or gangrene (principal)
CPT/HCPCS: 36415; 85025

== ENCOUNTER 2024-10-08 01:10 | Day surgery (SDC) | payer BC, SELFPAY ==
[2024-10-02 12:51] VITALS: BMI 35.7
--- NOTE | 2024-10-02 12:52 | PC.NURSE ---
Report to the Outpatient Waiting Room, entrance under the green pavilion located off [facility], at time _1000_ on date _[id number]_. Planned Procedure Time: _1200_.? Time changes happen often and if your time is changed the preop area will call you the afternoon before. - You and your visitor will be asked to self-screen and do not enter if you have any COVID symptoms. Please call surgeon if you need to reschedule. - A mask is optional within the hospital at this time. Patients may have clear liquids (water, carbonated beverages, clear teas, apple juice) until 3 hours prior to surgery with a maximum of 20 ounces. - No food from midnight until time of surgery and no smoking. This includes no chewing gum, candy or mints. Take only the following medications with a SIP of water on the morning of surgery: __None___ DO NOT STOP ANY OF YOUR OTHER PRESCRIPTION MEDICATIONS PRIOR TO SURGERY EXCEPT THE FOLLOWING Medications to discontinue per physician ___Vitamins Date to take last [id number]___ Took Wegovy 10-02-2024, no more until after surgery. Please no make-up, nail italian, hairspray, perfume, deodorant, or body powder the day of surgery.? No jewelry (including any body piercings) or valuables the day of surgery, leave them at home.? Please take a shower or bath the night before, or the morning of, surgery with an antibacterial soap.? Wear comfortable, loose fitting clothing.? - Jewelry must be removed prior to entering the operating room.? Rings and piercings that are not removed may be cut off. - The hospital will not accept responsibility for valuables.? - Please leave all valuables, including medications, at home the day of surgery. If you are going home after surgery, a licensed driver license examiner must drive you home.? - NO public transportation without another adult if you receive anesthesia. - We recommend that an adult stay with you for 24 hours following discharge. - We also recommend that you do not drive, make important decision, drink alcoholic beverages, or take any drugs that were not prescribed by your health care provider for at least 24 hours after your discharge time. Follow any additional instructions given to you from your surgeon. Telephone instructions given to __Esther__and asked if any additional questions and then verbalized understanding. Patient advised to call surgeon office or pre surgery nurse liaison [phone] if any additional questions.
--- NOTE | 2024-10-07 17:04 | P.SS_ITS ---
Same Day Admit/Disch: HPI History of Present Illness Chief complaint: Umbilical Hernia (2cm) reducible Narrative: Esther Mcrae is a 39 year old female who is approximately 2 months . She has been noticing increased bulging and umbilical as well as left lower quadrant pain with straining. She was examined and found to have an umbilical hernia which is reducible and about a 2 cm defect. She is taken to surgery now for robotic laparoscopic repair with mesh PMFSH Surgical History Surgical History H/O gastric sleeve 2020 History of delivery 2013, 2021, 2023 Family History Family History Mother Diabetes mellitus Social History Social History Years smoked: 3 Smoking status: Former smoker Tobacco type: cigarettes Second hand tobacco smoke exposure: No Smoking end date: 10/02/12 Substance use: never Do You Feel Safe in your Home?: Yes Lack of Transportation: No Lack of Food: Never True Current Housing: I Have Housing Concerned About Future Housing: No Difficulty Paying Gas/Electric Bills: No Difficulty Paying for Meds: No Currently Unemployed: No Education: High School Diploma/GED Difficulty w/ Childcare or Family Care: No Living arrangements: with family Gender identity (if verbalized by the patient): Female Spiritual care concerns: No Same Day Admit/Disch: Med Pre-admit Medications Home Medications Medication Instructions Recorded Confirmed Type vit no.95-ferrous 1 tablet PO DAILY 07/01/21 10/02/24 History fumarate 28 mg-folic acid 800 mcg tablet () cholecalciferol (vitamin D3) 125 125 mcg PO DAILY 07/22/24 10/02/24 History mcg (5,000 unit) tablet (Vitamin D3) vitamin A 3,000 mcg (10,000 unit) 3,000 mcg PO DAILY 07/22/24 10/02/24 History capsule docusate sodium 100 mg capsule 100 mg PO BID PRN Constipation 10/02/24 10/02/24 History semaglutide (weight loss) 0.25 0.25 mg subcut WEEKLY 10/02/24 10/02/24 History mg/0.5 mL subcutaneous pen injector (Wegovy) oxycodone-acetaminophen 5 mg-325 1 - 2 tablet PO Q6H PRN pain #30 10/08/24 Rx mg tablet (Percocet) tabs Review of Systems Review of Systems All systems reviewed & are unremarkable except as noted in HPI and below (HPI) Exam Const: General: comfortable, no acute distress, alert and awake HENMT: Head: normocephalic and atraumatic Mouth: Yes Normal oral and palatal mucosa present Eyes: Conjunctivae: conjunctivae normal Pupils: Equal, round and reactive pupils present EOM: EOMs intact bilaterally Neck: Neck: normal visual inspection, no lymphadenopathy and nontender Resp: Effort & Inspection: normal respiratory effort Auscultation: clear to auscultation bilaterally Cardio: Rate: regular rate Rhythm: regular rhythm Heart sounds: no gallops, no murmurs and no rubs GI: Inspection: non-distended and visible herniation (Umbilical) GI Palp: Yes Soft to palpation, No Tenderness to palpation present (GI), No Hepatomegaly present, No Splenomegaly present and Yes Hernia present umbilical < 3 cm (Reducible, slightly tender umbilical hernia defect-2 cm) Skin: Lesions: no lesions Rashes: no rashes Neuro: General: no focal motor deficits and CN's II-XI intact bilaterally Cranial nerves: Yes Equal, round and reactive pupils present, Yes Bilaterally intact EOM present, Yes facial symmetry and Yes Midline tongue present Speech: normal speech Motor exam (neuro): 5/5 motor strength present throughout and Motor abnormalities not present Extrem: General: no clubbing, cyanosis or edema and edema Psych: Affect: normal affect Thought process: Normal thought process present Insight: Good insight present (Psych) DS: Summary Time Spent with Patient Time attestation: Total time spent providing and/or coordinating discharge services: DS: Admitting Diagnosis Discharge Date 10/08/2024 Admitting Diagnosis * Symptomatic reducible umbilical hernia with estimated defect size of 2 cm-have recommended patient proceed with repair laparoscopically with the robotic technique. The procedure, risks, benefits as well as the usual recovery have been discussed. This is planned to be an outpatient procedure and mesh will be used. This has been discussed with the patient as well. All questions were answered. She understands and agrees to go ahead. DS: Discharge Diagnosis Discharge Diagnosis (1) Umbilical hernia without obstruction and without gangrene: Code(s): K42.9 - Umbilical hernia without obstruction or gangrene Status: Chronic Assessment and Plan: Robotic laparoscopic repair performed 10/08/[address] Rollins Discharge Plan Discharge Patient Disposition: Home, Self-Care Discharge Instructions: 1. May shower the day after surgery over incisions. 2. Call office for: -Wound increasingly painful or bleeding -Vomiting -Fever of greater than 101 degrees 3. Expect some blood on dressing and old blood on skin. 4. If no bowel movement for three days, take 1 oz. (30 ml) Milk of Magnesia, if no results, take Fleets enema. 5. No heavy lifting > 15-20 pounds for 2 weeks. 6. No driving for 3 days or while taking narcotic pain medications. 7. Up walking 10-30 minutes three times per day. 8. Resume previous home medications. 9. Follow-up 10-14 days in office for wound check or as previously scheduled. 10. Oral pain medications prescription to be sent home with patient. 11. NUTRITION: Start out by drinking fluids and increase your diet as tolerated. If you experience nausea, try dry toast, crackers, and 7-UP. If nausea or vomiting persists, contact your surgeon?s office. Stand Alone Forms: General Discharge Instructions Follow-up/Referrals: Gio Rollins MD [Physician] - 2 Weeks (Call for appointment if you do not already have an appointment for follow-up.) Discharge Medications: New oxycodone-acetaminophen [Percocet] 5-325 mg tablet 1 - 2 tablet PO Q6H PRN (Reason: pain) Qty: 30 0RF Rx Instructions: take only as needed. OK to use tylenol for less severe pain. Continued PNV cmb#95-ferrous fumarate-FA [] 28 mg iron- 800 mcg tablet 1 tablet PO DAILY vitamin A 3,000 mcg (10,000 unit) Capsule 3,000 mcg PO DAILY cholecalciferol (vitamin D3) [Vitamin D3] 125 mcg (5,000 unit) Tablet 125 mcg PO DAILY Wegovy 0.25 mg/0.5 mL pen injector 0.25 mg SUBCUT WEEKLY Rx Instructions: Saturday docusate sodium 100 mg capsule 100 mg PO BID PRN (Reason: Constipation)
[2024-10-08] VITALS (10 sets, daily range): BP systolic 115–148; BP diastolic 53–76; PULSE 60–95; RESP 12–18; TEMP 36.3–36.6; O2SAT 96–100; BMI 36.8
[2024-10-08 10:11] LABS: BEDSIDEPREGUCG Negative (Negative)
[2024-10-08] MEDS: LACTATED RINGERS 1,000 ML 30 ML IV CONT ×2 (10:30→14:16)
[2024-10-08] MEDS: KETOROLAC 15 MG/ML VIAL (*BKC) IV PUSH (10:45)
[2024-10-08] MEDS: ACETAMINOPHEN 500 MG TABLET 1000 MG PO (10:45)
--- NOTE | 2024-10-08 11:24 | P.PNAN_ITS ---
Anes - Initial Pre Proc Eval Procedure: Operation Date: 10/08/24 12:00 Proposed Procedures p Robotic Laparoscopic Umbilical Hernia Repair with Mesh - Gio Rollins MD Date/Time: 10/08/24 11:24 Surgeon: Gio Rollins MD Pre Op Diagnosis: Umbilical Hernia (2cm) reducible Patient Data Age: 39 Gender: F Height: 1.55 m Weight: 88.4 kg Last Vital Signs Temp 97.9 F 10/08/24 09:40 Pulse 60 10/08/24 09:40 Resp 18 10/08/24 09:40 BP 115/76 10/08/24 09:40 Pulse Ox 99 10/08/24 09:40 Allergies Allergy/AdvReac Type Severity Reaction Status Date / Time NSAIDS (Non-Steroidal Allergy Severe GASTRIC Verified 10/08/24 10:03 Anti-Inflamma BYPASS*SEE COMMENT Home Medications Medication Instructions Recorded Confirmed Type vit no.95-ferrous 1 tablet PO DAILY 07/01/21 10/02/24 History fumarate 28 mg-folic acid 800 mcg tablet () cholecalciferol (vitamin D3) 125 125 mcg PO DAILY 07/22/24 10/02/24 History mcg (5,000 unit) tablet (Vitamin D3) vitamin A 3,000 mcg (10,000 unit) 3,000 mcg PO DAILY 07/22/24 10/02/24 History capsule docusate sodium 100 mg capsule 100 mg PO BID PRN Constipation 10/02/24 10/02/24 History semaglutide (weight loss) 0.25 0.25 mg subcut WEEKLY 10/02/24 10/02/24 History mg/0.5 mL subcutaneous pen injector (Wegovy) Laboratory Tests 10/08/24 10:08 POC Urine HCG, Qual Negative (Negative) Patient hx anesthesia problems: none Family hx anesthesia problems: none Results Review: All pre-operative results and documents have been reviewed as part of the pre- operative evaluation. [facility] Surgical History Surgical History H/O gastric sleeve 2020 History of delivery 2013, 2021, 2023 Family History Family History Mother Diabetes mellitus Social History Social History Years smoked: 3 Smoking status: Former smoker Tobacco type: cigarettes Second hand tobacco smoke exposure: No Smoking end date: 10/02/12 Substance use: never Do You Feel Safe in your Home?: Yes Lack of Transportation: No Lack of Food: Never True Current Housing: I Have Housing Concerned About Future Housing: No Difficulty Paying Gas/Electric Bills: No Difficulty Paying for Meds: No Currently Unemployed: No Education: High School Diploma/GED Difficulty w/ Childcare or Family Care: No Living arrangements: with family Gender identity (if verbalized by the patient): Female Spiritual care concerns: No Anes - Eval Final PreProcedure Day of Procedure 10/08/24 11:24 Patient weight: obese Heart: regular rate and rhythm Lungs: clear to auscultation Airway: Mallampati scale class III Neurological: alert and oriented Last oral intake: >/= 8 hours ASA classification: II Emergent: no Anesthetic plan: proceed Anesthesia type and monitoring: general ETT and standard monitoring Results Review: All pre-operative results and documents have been reviewed as part of the pre- operative evaluation. Ex smoker, quit 2011. Informed Consent: The patient's anesthetic plan and its attendant risks and benefits were discussed with the patient/family/POA. Questions were solicited and answers provided to the satisfaction of the patient/family/POA.
--- NOTE | 2024-10-08 12:06 | WPDHPUPDATE1 ---
History and Physical Update Update Date/Time: 10/08/24 12:06 History and Physical has been reviewed, including an updated exam of the patient. There are NO changes in the patient's condition. Risks, benefits, and alternatives have been discussed and questions answered. Patient agrees to proceed with procedure.
[2024-10-08] MEDS: ceFAZolin 2 GM/D5W 50 ML 2 GM/50 ML BAG IVPB (12:12)
[2024-10-08] MEDS: BUPIVACAINE/EPINEPHRINE 0.5% 10 ML VIAL 30 ML INFILTRATE (13:13)
[2024-10-08] MEDS: fentaNYL CITRATE INJ (*CRX) 100 MCG/2 ML VIAL 25 MCG IV PUSH ×6 (14:45→15:14)
[2024-10-08] MEDS: ONDANSETRON INJ 4 MG/2 ML VIAL IV PUSH (15:43)
--- NOTE | 2024-10-08 15:43 | P.OP_ITS ---
Procedure Note - Detailed Date of Procedure 10/09/24 Pre-op Diagnosis Umbilical Hernia (2cm) reducible Post-op Diagnosis Same Procedure Performed Robotic laparoscopic repair umbilical hernia with 2 cm defect with mesh Surgeon Gio Rollins MD Finger Buff Sewer Sav SANCHEZ Anesthesia General and Local Indications Patient had noticed an umbilical bulge which is been protruding more and is sometimes painful. She was seen in the office and found to have an umbilical hernia with a 2 cm defect. She is taken to surgery now for robotic laparoscopic repair. Findings Hernia defect was 2 cm as expected. There were no other defects noted on the anterior abdominal wall. Description of Procedure Patient was taken to surgery and induced into general anesthesia. The left side was propped on a bump and the table was flexed in the center. Prep and drape of the abdomen was carried out. Trocars were placed in the typical fashion starting with an applied Medical optical trocar in the left subcostal position. When this was in place, we placed the 2 robotic trocars under direct visualization. The camera position was changed and we replaced the optical trocar with a 3rd 8 mm robotic trocar. The robot was then brought into the field and the camera was docked. Camera was then targeted. The 2 operating ports were docked and instruments positioned appropriately. The surgeon then went to the robotic console. The hernia defect was easily seen. Dissection was carried out removing some properitoneal fat in the midline and also reducing the herniated properitoneal fat in the defect itself. I then cleared the midline of fatty tissue both caudal and cephalad of the hernia defect such that there was sufficient area to secure the mesh to the anterior abdominal wall. Estimated Blood Loss -5 Drains No Packing No Pathology None sent Complications None Condition Stable Disposition PACU [facility] Billing Surgery - Charge Forward: Surgery Billing (Robotic laparoscopic repair 2 cm umbilical hernia with mesh)
[2024-10-08] MEDS: oxyCODONE HCL (*CRX) 5 MG TAB IR PO (16:55)
== END 2024-10-08 17:16 | disposition home or self-care (01) ==
PROVIDERS: Visit Provider Surgery
PROC: (CPT 49591; principal; 2024-10-08 12:00)
DX: K42.9 Umbilical hernia without obstruction or gangrene (principal); Z87.891 Personal history of nicotine dependence; Z98.84 Bariatric surgery status; E66.9 Obesity, unspecified; Z68.36 Body mass index [BMI] 36.0-36.9, adult
CPT/HCPCS: 49591; S2900; 36415; 86850; 86900; 86901; A9270; C1781; J0690; J1100; J1885; J2003; J2250; J2405; J2704; J3010; J7030; J7120